=== PATIENT | female | born 1995 | race Caucasian/White ===

== ENCOUNTER 2023-01-18 23:32 | Emergency (ER) | payer SELFPAY ==
[~2023-01-18] VITALS: Ht 170 cm; Wt 88.0 kg
[2023-01-18 23:43] VITALS: BP 126/78
--- NOTE | 2023-01-19 00:09 | ED Upper Extremity ---
General Chief Complaint: Upper Extremity Stated Complaint: FALL AT SKATE RINK,RT ARM PX Nursing Triage Note: patient reports that she fell around 1500 today while skating landing on her right side. c/o pain in forearm, elbow, and shoulder since then. taking tylenol and icing/heat with no improvement in pain Source: patient Exam Limitations: no limitations History of Present Illness Date Seen by Provider: Jan 19, 2023 Time Seen by Provider: 00:09 Initial Comments Patient is a 27-year-old female who presents to the emergency room with a chief complaint of right elbow pain. She was skating at 3:00 when she fell over onto her right arm. She had immediate onset of pain in the right elbow area that is radiating up the right arm and down to the right wrist. No other complaints of injury. She denies numbness, tingling or weakness. She has been taking Tylenol and alternating ice and heat with no improvement. She is right-hand dominant. Onset: this afternoon (3 PM) Severity: moderate Pain/Injury Location: right shoulder, right arm, right elbow, right forearm Method of Injury: fell Modifying Factors: Improves With Immobilization; Worse With Movement Allergies and Home Medications Allergies Coded Allergies: ondansetron (Verified Allergy, Unknown, 01/19/23) Patient Home Medication List Home Medication List Reviewed: Yes Review of Systems Constitutional: see HPI EENTM: no symptoms reported Respiratory: no symptoms reported Cardiovascular: no symptoms reported Musculoskeletal: joint pain (Right elbow/forearm) Skin: no symptoms reported All Other Systems Reviewed Negative Unless Noted: Yes Past Yhylosl-Mnluhs-Sctlne Hx Patient Social History Tobacco Use?: No Smoking Status: Never a Smoker Substance use?: No Alcohol Use?: No Pt feels they are or have been: No Physical Exam Vital Signs Vital Signs - First Documented 01/18/23 23:43 Temp 36.8 Pulse 84 Resp 16 B/P (MAP) 126/78 (94) Pulse Ox 97 O2 Delivery Room Air Capillary Refill : Less Than 3 Seconds Height, Weight, BMI Height: '" Weight: lbs. oz. kg; 30.00 BMI Method: General Appearance: WD/WN, mild distress (Slightly anxious in appearance) HEENT: PERRL/EOMI Cardiovascular: regular rate, rhythm Respiratory: no respiratory distress, no accessory muscle use Back: normal inspection Shoulder: normal inspection, non-tender, no evidence of injury, normal ROM Elbow/Forearm: Right, bone tenderness (Bony tenderness lateral epicondyle right elbow), limited ROM, pain, soft tissue tenderness (Over the muscles of the proximal right forearm), swelling (Mild swelling proximal right forearm) Wrist: Yes normal inspection, Yes non-tender, Yes no evidence of injury, Yes normal ROM Hand: normal inspection, non-tender, no evidence of injury, normal ROM Neurologic/Tendon: normal sensation, normal motor functions, normal tendon functions Neurologic/Psychiatric: no motor/sensory deficits, alert, normal mood/affect, oriented x 3 Skin: normal color, warm/dry Progress/Results/Core Measures Results/Orders My Orders Orders - MUNA POE MD Elbow, Right, 3 Views (01/19/23 00:11) Ibuprofen Tablet (Ibuprofen Tablet) (01/19/23 00:45) Medications Given in ED Current Medications Medications Dose Ordered Sig/Morgan Route Start Time Stop Time Status Last Admin Dose Admin Ibuprofen 600 mg ONCE ONCE PO 01/19/23 00:45 01/19/23 00:41 DC 01/19/23 00:38 600 MG Vital Signs/I&O 01/18/23 23:43 Temp 36.8 Pulse 84 Resp 16 B/P (MAP) 126/78 (94) Pulse Ox 97 O2 Delivery Room Air Blood Pressure Mean: 94 Progress Progress Note : Time: 00:34 Progress Note Patient seen and evaluated by me. Evaluation today includes history and physical exam with x-rays of the right elbow. Pertinent physical exam findings well-developed well-nourished female in mild distress due to right elbow pain. She has a little swelling noted to the medial right elbow with limited range of motion due to discomfort. No palpable crepitance. Tenderness elicited over the medial epicondyle of the right elbow. No skin wounds or lesions. She is able to range the wrist, elbow and shoulder gently. She is neurovascularly intact to the right upper extremity. Differential diagnosis includes elbow strain versus fracture 3 views of the right elbow reviewed and interpreted by me, no sail sign, no obvious fractures, no dislocation. Patient is recommended to take ibuprofen 600 mg every 6 hours, ice for the next 24 hours. Gentle stretching and range of motion. No concerning findings at this time for fracture. Return precautions provided. All questions are sought and answered. Patient is stable for disc harge. Diagnostic Imaging Diagonstic Imaging: Xray Comments X-ray 3 views of the right elbow -independently reviewed and interpreted by me, no fractures, dislocation, no "sail sign" Departure Impression Primary Impression: Contusion of right elbow Qualified Codes: S50.01XA - Contusion of right elbow, initial encounter Disposition: HOME, SELF-CARE Condition: Stable Departure-Patient Inst. Decision time for Depature: 00:32 Referrals: NO,LOCAL PHYSICIAN (PCP/Family) Primary Care Physician Patient Instructions: Elbow Sprain (DC) Add. Discharge Instructions: Continue to apply ice packs for the next 24 hours off and on. Use [id number] ibuprofen 3 pills which is 600 mg every 6 hours, with food as needed for pain. Follow-up with your primary care provider as needed. Return to the emergency department for any new, concerning or emergent c omplaints. MUNA POE MD Jan 19, 2023 00:09
[2023-01-19] MEDS ORDERED: IBUPROFEN 600 MG TABLET PO ONE (00:45)
--- NOTE | 2023-01-19 07:35 | Diagnostic Imaging Report ---
INDICATION: Pain, fall on arm COMPARISON: None available. TECHNIQUE: 3 radiographs of the right elbow dated 01/19/2023 FINDINGS: No acute fracture or dislocation. No destructive osseous process. Joint spaces are well-maintained. No definite elbow joint effusion within the limits of the exam, though the evaluation is slightly limited secondary to positioning of the lateral radiograph. No suspicious radiopaque foreign body IMPRESSION: No acute osseous abnormality. Dictated by: Dictated on workstation # [id number]
== END 2023-01-19 00:35 | disposition home or self-care (01) ==
LOC: ER 23:36
DX: S50.01XA Contusion of right elbow, initial encounter (principal); V00.131A Fall from skateboard, initial encounter; Y93.21 Activity, ice skating
CPT/HCPCS: 73080; 99283